=== PATIENT | female | born 1995 | race Caucasian/White ===

== ENCOUNTER 2024-03-16 21:57 | Emergency (ER) | payer BC ==
[2024-03-17] MEDS: Ibuprofen 600 MG Tab PO ONE (01:42)
[2024-03-17] MEDS: Benzonatate 100 MG Cap PO ONE (01:42)
[2024-03-17] MEDS: Oseltamivir 75 MG Cap PO ONE (01:42)
== END 2024-03-17 02:59 | disposition home or self-care (01) ==
LOC: MW.ED 21:57
DX: J10.1 Influenza due to other identified influenza virus with other respiratory manifestations (principal); Z75.8 Other problems related to medical facilities and other health care
CPT/HCPCS: 71045; 87428; 93005; 99284; A9270